=== PATIENT | female | born 1950 | race Caucasian/White ===

== ENCOUNTER 2016-10-19 13:04 | Outpatient (CLI) | payer MEDICARE, MEDICAID | END 2016-10-19 13:05 | disposition home or self-care (01) | DX: G47.30 Sleep apnea, unspecified (principal); G47.8 Other sleep disorders; R06.83 Snoring; G47.10 Hypersomnia, unspecified | CPT/HCPCS: 99203; G0463 ==

== ENCOUNTER 2016-11-13 21:45 | Outpatient (CLI) | payer MEDICARE, MEDICAID | END 2016-11-13 21:46 | disposition home or self-care (01) | LOC: SC 21:45 | PROVIDERS: ATTEND Internal Medicine Pulmonary Disease | DX: G47.33 Obstructive sleep apnea (adult) (pediatric) (principal); G47.61 Periodic limb movement disorder; R09.02 Hypoxemia; Z68.41 Body mass index [BMI] 40.0-44.9, adult | CPT/HCPCS: 95810 ==

== ENCOUNTER 2016-11-20 10:17 | Outpatient (CLI) | payer MEDICARE, MEDICAID | END 2016-11-20 10:18 | disposition home or self-care (01) | DX: Z79.899 Other long term (current) drug therapy (principal); E03.9 Hypothyroidism, unspecified ==

== ENCOUNTER 2016-12-08 14:32 | Outpatient (CLI) | payer MEDICARE, MEDICAID | END 2016-12-08 14:33 | disposition home or self-care (01) | LOC: SC 14:32 | PROVIDERS: ATTEND Nurse Practitioner Family | DX: G47.33 Obstructive sleep apnea (adult) (pediatric) (principal); G47.61 Periodic limb movement disorder | CPT/HCPCS: 99214; G0463; 99212 ==

== ENCOUNTER 2016-12-30 21:57 | Outpatient (CLI) | payer MEDICARE, MEDICAID | END 2016-12-30 21:58 | disposition home or self-care (01) | LOC: SC 21:57 | PROVIDERS: ATTEND Internal Medicine Pulmonary Disease | DX: G47.33 Obstructive sleep apnea (adult) (pediatric) (principal); G47.61 Periodic limb movement disorder; Z68.41 Body mass index [BMI] 40.0-44.9, adult | CPT/HCPCS: 95811 ==

== ENCOUNTER 2017-01-25 11:26 | Outpatient (CLI) | payer MEDICARE, MEDICAID | END 2017-01-25 11:27 | disposition home or self-care (01) | LOC: SC 11:26 | PROVIDERS: ATTEND Internal Medicine Pulmonary Disease | DX: G47.33 Obstructive sleep apnea (adult) (pediatric) (principal); G47.61 Periodic limb movement disorder | CPT/HCPCS: 99213; G0463; 99212 ==

== ENCOUNTER 2017-07-11 21:10 | Emergency (ER) | payer MEDICARE, MEDICAID ==
[2017-07-11 22:10] LABS: BASOPHILS # (AUTO) 0.1 10^3/uL (0.0-0.1); BASOPHILS % (AUTO) 1.4 %; EOSINOPHILS # (AUTO) 0.2 10^3/uL (0.0-0.7); EOSINOPHILS % (AUTO) 2.1 %; HGB - HEMOGLOBIN 14.9 g/dL (12.0-16.0); LYMPHOCYTES # (AUTO) 2.8 10^3/uL (1.5-3.5); MEAN CORPUSCULAR HEMOGLOBIN 28.7 pg (27.0-31.0); MEAN CORPUSCULAR HGB CONC 33.1 g/dL (32.0-36.0); MEAN CORPUSCULAR VOLUME 86.8 fL (81.0-99.0); MEAN PLATELET VOLUME 7.7 fL (7.9-10.8); MONOCYTES # (AUTO) 0.6 10^3/uL (0.0-1.0); MONOCYTES % (AUTO) 6.9 %; NEUTROPHILS # (AUTO) 5.5 10^3/uL (1.5-6.6); NEUTROPHILS % (AUTO) 59.6 %; PLT - PLATELET COUNT 213 10^3/uL (130-450); RED BLOOD COUNT 5.18 10^6/uL (4.20-5.40); RED CELL DISTRIBUTION WIDTH 14.4 % (12.0-15.0); WHITE BLOOD COUNT 9.2 x10^3/uL (4.8-10.8)
[2017-07-11 22:21] LABS: ALBUMIN 4.3 g/dL (3.2-5.5); ALBUMIN/GLOBULIN RATIO 1.5 (1.0-2.2); BILIRUBIN,TOTAL 0.8 mg/dL (0.2-1.0); CALCIUM 9.3 mg/dL (8.5-10.3); CREATININE 1.1 mg/dL (0.4-1.0); TOTAL PROTEIN 7.2 g/dL (6.7-8.2)
[2017-07-11 23:38] LABS: BILIRUBIN,URINE NEGATIVE (NEGATIVE); GLUCOSE, URINE (UA) NEGATIVE (NEGATIVE); KETONES,URINE (UA) NEGATIVE (NEGATIVE); LEUKOCYTE ESTERASE, URINE NEGATIVE (NEGATIVE); NITRITE,URINE NEGATIVE (NEGATIVE); OCCULT BLOOD,URINE NEGATIVE (NEGATIVE); PH,URINE 5.5 PH (5.0-7.5); PROTEIN,URINE NEGATIVE (NEGATIVE); UROBILINOGEN,URINE 0.2 (NORMAL) E.U./dL (NORMAL)
[2017-07-11 23:40] LABS: CLARITY,URINE CLEAR (CLEAR)
--- NOTE | 2017-07-11 23:49 | ED Physician Documentation ---
PD HPI SYNCOPE - Stated complaint Stated Complaint: DIZZY/NAUSEA - Chief complaint Chief Complaint: Neuro - History obtained from History obtained from: Patient - History of Present Illness Timing - onset: How many weeks ago (2) Preceding symptoms: Light headed. No: Chest pain, Dyspnea, Abdominal pain, Nausea / vomiting Contributing factors: None Similar symptoms before: No diagnosis Recently seen: Not recently seen - Additional information Additional information: Patient is a 67 year old female with no significant past medical history who is presenting to the emergency department for near syncope. patient states that over the last two weeks she has had multiple episodes where she feels like she might pass out. patient denies ever passing out though. Patient denies aggravating or alleviating factors. Patient reports that she knew she needed to see a doctor but she stays across the street so she came her first instead. With all the episodes there has never been any chest pain or shortness of breath. Review of Systems Constitutional: denies: Fever, Myalgias Eyes: denies: Decreased vision, Photophobia Ears: denies: Ear pain, Drainage/discharge Nose: denies: Congestion Throat: denies: Sore throat Cardiac: denies: Chest pain / pressure, Palpitations, Calf pain Respiratory: denies: Cough, Wheezing GI: denies: Nausea, Vomiting : reports: Frequency. denies: Dysuria Skin: denies: Rash, Lesions Neurologic: reports: Near syncope. 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 - Present Medications Home Medications: Ambulatory Orders Medication Instructions Recorded Confirmed Levothyroxine [Synthroid] 200 mcg PO QDAC 04/27/13 07/11/17 - Allergies Allergies/Adverse Reactions: Allergies Allergy/AdvReac Type Severity Reaction Status Date / Time No Known Drug Allergies Allergy Verified 07/11/17 21:27 - Social History Does the pt smoke?: No Smoking Status: Never smoker Does the pt drink ETOH?: Yes Does the pt have substance abuse?: No - Immunizations Immunizations are current?: Yes - POLST Patient has POLST: No PD ED PE NORMAL - Vitals Vital signs reviewed: Yes - General General: Alert and oriented X 3, No acute distress - HEENT HEENT: Atraumatic, PERRL - Neck Neck: Supple, no meningeal sign, No JVD, No bruit - Cardiac Cardiac: RRR - Respiratory Respiratory: No respiratory distress, Clear bilaterally - Abdomen Abdomen: Soft, Non tender, Non distended - Derm Derm: Normal color, Warm and dry, No rash - Extremities Extremities: No deformity, Normal ROM s pain, No calf tenderness / cord - Neuro Neuro: Alert and oriented X 3, mud mill tender 2-12 intact, No motor deficit, No sensory deficit, Normal speech Eye Opening: Spontaneous Motor: Obeys Commands Verbal: Oriented GCS Score: 15 - Psych Psych: Normal mood Results - Vitals Vitals: Vital Signs - 24 hr 07/11/17 07/11/17 07/11/17 21:23 22:02 23:14 Temperature 36.8 C Heart Rate 80 74 75 Respiratory 18 17 13 Rate Blood Pressure 146/86 H 149/78 H 160/92 H O2 Saturation 97 94 95 Oxygen O2 Source Room air - EKG (time done) 2152 Rate: Rate (enter#) (78) Rhythm: NSR Bunker: LAD Ischemia: ST depression, T wave inversion Compare to prior EKG: Unchanged from prior EKG - Labs Labs: Laboratory Tests 07/11/17 07/11/17 07/11/17 22:00 22:00 22:00 WBC 9.2 RBC 5.18 Hgb 14.9 Hct 44.9 MCV 86.8 MCH 28.7 MCHC 33.1 RDW 14.4 Plt Count 213 MPV 7.7 L Neut # 5.5 Lymph # 2.8 Wright # 0.6 Eos # 0.2 Baso # 0.1 Absolute Nucleated RBC 0.00 Nucleated RBC % 0.0 Sodium 137 Potassium 3.8 Chloride 101 Carbon Dioxide 25 Anion Gap 11.0 BUN 24 H Creatinine 1.1 H Estimated GFR (MDRD) 50 L Glucose 103 H Calcium 9.3 Magnesium Total Bilirubin 0.8 AST 20 ALT 20 Alkaline Phosphatase 55 Troponin I < 0.04 B-Natriuretic Peptide Total Protein 7.2 Albumin 4.3 Globulin 2.9 Albumin/Globulin Ratio 1.5 Lipase 31 TSH Urine Color Urine Clarity Urine pH Ur Specific [place] Urine Protein Urine Glucose (UA) Urine Ketones Urine Occult Blood Urine Nitrite Urine Bilirubin Urine Urobilinogen Ur Leukocyte Esterase Ur Microscopic Review Urine Culture Comments 07/11/17 07/11/17 07/11/17 22:00 22:00 22:00 WBC RBC Hgb Hct MCV MCH MCHC RDW Plt Count MPV Neut # Lymph # Wright # Eos # Baso # Absolute Nucleated RBC Nucleated RBC % Sodium Potassium Chloride Carbon Dioxide Anion Gap BUN Creatinine Estimated GFR (MDRD) Glucose Calcium Magnesium 2.0 Total Bilirubin AST ALT Alkaline Phosphatase Troponin I B-Natriuretic Peptide 30 Total Protein Albumin Globulin Albumin/Globulin Ratio Lipase TSH 3.82 Urine Color Urine Clarity Urine pH Ur Specific [place] Urine Protein Urine Glucose (UA) Urine Ketones Urine Occult Blood Urine Nitrite Urine Bilirubin Urine Urobilinogen Ur Leukocyte Esterase Ur Microscopic Review Urine Culture Comments 07/11/17 22:20 WBC RBC Hgb Hct MCV MCH MCHC RDW Plt Count MPV Neut # Lymph # Wright # Eos # Baso # Absolute Nucleated RBC Nucleated RBC % Sodium Potassium Chloride Carbon Dioxide Anion Gap BUN Creatinine Estimated GFR (MDRD) Glucose Calcium Magnesium Total Bilirubin AST ALT Alkaline Phosphatase Troponin I B-Natriuretic Peptide Total Protein Albumin Globulin Albumin/Globulin Ratio Lipase TSH Urine Color LT. YELLOW Urine Clarity CLEAR Urine pH 5.5 Ur Specific [place] <=1.005 Urine Protein NEGATIVE Urine Glucose (UA) NEGATIVE Urine Ketones NEGATIVE Urine Occult Blood NEGATIVE Urine Nitrite NEGATIVE Urine Bilirubin NEGATIVE Urine Urobilinogen 0.2 (NORMAL) Ur Leukocyte Esterase NEGATIVE Ur Microscopic Review NOT INDICATED Urine Culture Comments NOT INDICATED PD MEDICAL DECISION MAKING - ED course Complexity details: reviewed old records, reviewed results, re-evaluated patient , considered differential, d/w patient ED course: Patient was seen and examined at bedside. patient was well appearing and in no acute distress. ekg was performed and although abnormal was unchanged from 2014. labs were drawn and urine as collected. Patient had no neurological deficits. Patient's diagnostics were all within normal limits. patient was " low risk" on brice tello syncope rules. Patient was made aware of her findings and given detailed discharge and follow up instructions. Patient required no further work up and was stable for discharge with outpatient follow up. Departure - Departure Disposition: 01 Home, Self Care Clinical Impression: Near syncope Condition: Good Instructions: ED Near Syncope Unkn Follow-Up: Valorie Claros ARNP [Primary Care Provider] - Comments: Your diagnostics today were within normal limits. there is no sign of heart attack, heart failure, anemia or infection. Your ekg has not changed in over 2 years. That being said this is only a snap shot in time and i would recommend following up with your doctor for an echo, stress test and possible carotid dopplers. You may return to the emergency department at any time for new, worsening or uncontrollable symptoms.
[2017-07-12 00:05] VITALS: BP 153/80
== END 2017-07-12 | disposition home or self-care (01) ==
LOC: ED 21:10
DX: R55 Syncope and collapse (principal); R94.31 Abnormal electrocardiogram [ECG] [EKG]; Z96.659 Presence of unspecified artificial knee joint
CPT/HCPCS: 36415; 80053; 81001; 81003; 83690; 83735; 83880; 84443; 84484; 85025; 87086; 93005; 99284

== ENCOUNTER 2017-07-26 08:39 | Outpatient (CLI) | payer MEDICARE, MEDICAID ==
[2017-07-26 12:42] LABS: ALBUMIN 4.3 g/dL (3.2-5.5); ALBUMIN/GLOBULIN RATIO 1.7 (1.0-2.2); BILIRUBIN,TOTAL 0.9 mg/dL (0.2-1.0); CALCIUM 8.8 mg/dL (8.5-10.3); TOTAL PROTEIN 6.9 g/dL (6.7-8.2)
== END 2017-07-26 08:40 | disposition home or self-care (01) ==
LOC: LAB.N 08:39
PROVIDERS: ATTEND Nurse Practitioner Gerontology
DX: N18.3 Chronic kidney disease, stage 3 (moderate) (principal)
CPT/HCPCS: 36415; 80053

== ENCOUNTER 2017-08-24 13:57 | Outpatient (CLI) | payer MEDICARE, MEDICAID ==
--- NOTE | 2017-08-24 16:44 | Mammography Report ---
DIAGNOSTIC BILATERAL MAMMOGRAM: 08/24/2017 CLINICAL INDICATION: Bilateral pain, followup left breast calcifications. TECHNIQUE: Bilateral CC, MLO, true lateral views, left spot magnification views. COMPARISON: 04/13/2016, 09/27/2015, 10/04/2013. FINDINGS: The breasts demonstrate scattered fibroglandular densities bilaterally. The calcifications in the left upper posterior breast have coarsened in the interval, compatible with benign etiology. Other coarse and punctate calcifications are present bilaterally, no suspicious masses, clustered microcalcifications, or regions of architectural distortion are identified. IMPRESSION: BENIGN FINDINGS. RECOMMENDATION: routine annual screening unless otherwise clinically indicated. STANDARD QUALIFYING STATEMENTS: 1. This examination was reviewed with the aid of Computer-Aided Detection (CAD). 2. A negative or benign imaging report should not delay biopsy if clinically suspicious findings are present. Consider surgical consultation if warranted. More than 5% of cancers are not identified by imaging. 3. Dense breasts may obscure an underlying neoplasm. BIRADS CATEGORY 2 benign findings. cc: TERESE Dietz TD: 08/24/2017 16:42 cc: TERESE Dietz
== END 2017-08-24 13:58 | disposition home or self-care (01) ==
LOC: DI 13:57
PROVIDERS: ATTEND Nurse Practitioner Gerontology
DX: N64.4 Mastodynia (principal)
CPT/HCPCS: 77066

== ENCOUNTER 2017-09-12 21:17 | Emergency (ER) | payer MEDICARE, MEDICAID ==
--- NOTE | 2017-09-12 22:24 | XRAY Preliminary Report ---
Exam: XR CHEST 2 VIEW X-RAY IMPRESSION: 1. No acute abnormality seen in the chest. [facility] SITE ID: [id number]
--- NOTE | 2017-09-12 22:25 | XRAY Report ---
EXAM: CHEST RADIOGRAPHY EXAM DATE: 09/12/2017 09:34 PM. CLINICAL HISTORY: Cough and shortness of breath. COMPARISON: 01/07/2016. TECHNIQUE: 2 views. FINDINGS: Lungs/Pleura: No alveolar consolidation or pleural effusion seen. No pneumothorax. Mediastinum: Heart size is normal. Aortic atherosclerosis. Other: None. IMPRESSION: 1. No acute abnormality seen in the chest. [facility] Referring Provider Line: [phone] SITE ID: [id number]
--- NOTE | 2017-09-12 22:39 | ED Physician Documentation ---
PD HPI DYSPNEA - Stated complaint Stated Complaint: COUGH/SOA - Chief complaint Chief Complaint: Resp - History obtained from History obtained from: Patient - History of Present Illness Timing - onset: How many weeks ago (1) Timing - details: Gradual onset, Intermittant Pain level now: 0 Improved by: Rest Worsened by: Exertion, Laying flat, Coughing Associated symptoms: Fever (subjective (did not take temperature)), Cough. No: Hemoptysis, Chest pain / discomfort, Bilateral edema, Unilateral edema Similar symptoms before: Has not had sx before Recently seen: Not recently seen Review of Systems Constitutional: reports: Fever (subjective). 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 - Present Medications Home Medications: Ambulatory Orders Medication Instructions Recorded Confirmed Levothyroxine [Synthroid] 200 mcg PO QDAC 04/27/13 07/11/17 guaiFENesin/CODEINE [Robitussin AC] 5 - 10 ml PO Q6H PRN #100 udc 09/12/17 predniSONE [Prednisone] 40 mg PO DAILY #4 tablet 09/12/17 - Allergies Allergies/Adverse Reactions: Allergies Allergy/AdvReac Type Severity Reaction Status Date / Time No Known Drug Allergies Allergy Verified 09/12/17 21:24 - Social History Does the pt smoke?: No Smoking Status: Never smoker Does the pt drink ETOH?: Yes Does the pt have substance abuse?: No - Immunizations Immunizations are current?: Yes - POLST Patient has POLST: No PD ED PE NORMAL - Vitals Vital signs reviewed: Yes - General General: Alert and oriented X 3, No acute distress, Well developed/nourished - Neck Neck: Supple, no meningeal sign - Cardiac Cardiac: RRR, No murmur - Respiratory Respiratory: No respiratory distress, Clear bilaterally - Abdomen Abdomen: Soft, Non tender - Derm Derm: Normal color, Warm and dry, No rash - Extremities Extremities: No edema Results - Vitals Vitals: Oxygen O2 Source Room air - Rads (name of study) chest xray Radiology: Prelim report reviewed, See rad report PD MEDICAL DECISION MAKING - ED course Complexity details: reviewed results, re-evaluated patient, considered differential, d/w patient Departure - Departure Disposition: 01 Home, Self Care Clinical Impression: Bronchitis, Sinusitis Condition: Good Instructions: ED Upper Resp Infec No Abx Tx, ED Sinusitis No Abx Prescriptions: guaiFENesin/CODEINE [Robitussin AC] 5 - 10 ml PO Q6H PRN #100 udc PRN Reason: Cough predniSONE [Prednisone] 40 mg PO DAILY #4 tablet Discharge Date/Time: 09/12/17 23:32
[2017-09-12] MEDS ORDERED: predniSONE 20 MG TABLET PO STA (23:24)
[2017-09-12] MEDS ORDERED: guaiFENesin/CODEINE 5 ML UDC PO STA (23:24)
[2017-09-12 23:32] VITALS: BP 135/84
== END 2017-09-12 23:32 | disposition home or self-care (01) ==
LOC: ED 21:17
DX: J40 Bronchitis, not specified as acute or chronic (principal); J32.9 Chronic sinusitis, unspecified; K21.9 Gastro-esophageal reflux disease without esophagitis; Z87.442 Personal history of urinary calculi; M19.90 Unspecified osteoarthritis, unspecified site
CPT/HCPCS: 71046; 99283; A9270; J7512

== ENCOUNTER 2017-09-22 09:39 | Outpatient (CLI) | payer MEDICARE, MEDICAID ==
[2017-09-22 10:08] LABS: CHOL/HDL RATIO 3.9 (<4.4); CHOLESTEROL 189 mg/dL; HDL CHOLESTEROL 48 mg/dL; LDL CHOLESTEROL,CALCULATED 119 mg/dL; LDL/HDL RATIO 2.5 (<4.4); VLDL CHOLESTEROL 22 mg/dL
== END 2017-09-22 09:40 | disposition home or self-care (01) ==
LOC: LAB 09:39
PROVIDERS: ATTEND Internal Medicine Cardiovascular Disease
DX: I10 Essential (primary) hypertension (principal)
CPT/HCPCS: 36415; 80061; 83721

== ENCOUNTER 2017-12-27 09:01 | Outpatient (CLI) | payer MEDICARE, MEDICAID ==
[2017-12-27 09:24] LABS: BASOPHILS % (AUTO) 0.7 %; EOSINOPHILS # (AUTO) 0.2 10^3/uL (0.0-0.7); EOSINOPHILS % (AUTO) 2.6 %; HGB - HEMOGLOBIN 14.4 g/dL (12.0-16.0); LYMPHOCYTES # (AUTO) 1.9 10^3/uL (1.5-3.5); LYMPHOCYTES % (AUTO) 29.3 %; MEAN CORPUSCULAR HEMOGLOBIN 28.5 pg (27.0-31.0); MEAN CORPUSCULAR HGB CONC 32.6 g/dL (32.0-36.0); MEAN CORPUSCULAR VOLUME 87.5 fL (81.0-99.0); MEAN PLATELET VOLUME 7.6 fL (7.9-10.8); MONOCYTES # (AUTO) 0.5 10^3/uL (0.0-1.0); MONOCYTES % (AUTO) 7.2 %; NEUTROPHILS # (AUTO) 3.9 10^3/uL (1.5-6.6); NEUTROPHILS % (AUTO) 60.2 %; PLT - PLATELET COUNT 197 10^3/uL (130-450); RED BLOOD COUNT 5.06 10^6/uL (4.20-5.40); RED CELL DISTRIBUTION WIDTH 14.2 % (12.0-15.0); WHITE BLOOD COUNT 6.5 x10^3/uL (4.8-10.8)
[2017-12-27 09:39] LABS: ALBUMIN 3.8 g/dL (3.2-5.5); ALBUMIN/GLOBULIN RATIO 1.2 (1.0-2.2); ALKALINE PHOSPHATASE 50 IU/L (42-121); ALT ALANINE AMINOTRANSFERASE 17 IU/L (10-60); AST ASPARTATE AMINOTRANSFERASE 17 IU/L (10-42); BILIRUBIN,TOTAL 1.1 mg/dL (0.2-1.0); BUN - BLOOD UREA NITROGEN 21 mg/dL (6-20); CALCIUM 8.9 mg/dL (8.5-10.3); CARBON DIOXIDE - CO2 29 mmol/L (21-32); CHLORIDE 105 mmol/L (101-111); CHOLESTEROL 156 mg/dL; GFR - MDRD 55 (>89); GLUCOSE 111 mg/dL (70-100); HDL CHOLESTEROL 52 mg/dL; LDL CHOLESTEROL,CALCULATED 84 mg/dL; LDL/HDL RATIO 1.6 (<4.4); SODIUM 140 mmol/L (135-145); TOTAL PROTEIN 7.1 g/dL (6.7-8.2); VLDL CHOLESTEROL 20 mg/dL
[2017-12-27 09:46] LABS: HB2 TOTAL 16.1 g/dL; HEMOGLOBIN A1C 0.57 g/dL; HEMOGLOBIN A1C % 5.4 % (4.6-6.2)
== END 2017-12-27 09:02 | disposition home or self-care (01) ==
LOC: LAB 09:01
PROVIDERS: ATTEND Nurse Practitioner Gerontology
DX: N18.3 Chronic kidney disease, stage 3 (moderate) (principal); Z79.899 Other long term (current) drug therapy; E03.9 Hypothyroidism, unspecified
CPT/HCPCS: 36415; 80053; 80061; 83036; 83721; 84443; 85025

== ENCOUNTER 2018-04-06 02:30 | Emergency (ER) | payer MEDICARE, MEDICAID ==
--- NOTE | 2018-04-06 02:59 | ED Physician Documentation ---
History of Present Illness - Stated complaint Stated Complaint: DIZZINESS - Chief complaint Chief Complaint: Neuro - History obtained from History obtained from: Patient - History of Present Illness Timing: Last night (approximately 5-6 hours HOSE MENDER) Pain level max: 0 Pain level now: 0 Improved by: lying still Worsened by: movement of head, mostly with turning head to left - Additonal information Additional information: While watching TV at home tonight, patient turned her head and had sudden onset of room spinning (per patient) dizziness. This subsided but then re-occurred while she was lying in bed, again associated with turning her head. The dizziness is distinctly worse with movement of her head, predominantly with turning had two left. Nausea but no vomiting. Review of Systems Constitutional: reports: Reviewed and negative Eyes: reports: Reviewed and negative Ears: reports: Reviewed and negative Nose: reports: Reviewed and negative Cardiac: reports: Reviewed and negative Respiratory: reports: Reviewed and negative GI: reports: Nausea. 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 - Present Medications Home Medications: Ambulatory Orders Medication Instructions Recorded Confirmed Levothyroxine [Synthroid] 200 mcg PO QDAC 04/27/13 07/11/17 Meclizine [Antivert] 25 mg PO Q6H PRN #20 tablet 04/06/18 - Allergies Allergies/Adverse Reactions: Allergies Allergy/AdvReac Type Severity Reaction Status Date / Time No Known Drug Allergies Allergy Verified 04/06/18 03:00 - Social History Does the pt smoke?: No Smoking Status: Never smoker Does the pt drink ETOH?: Yes Does the pt have substance abuse?: No - Immunizations Immunizations are current?: Yes - POLST Patient has POLST: No PD ED PE NORMAL - Vitals Vital signs reviewed: Yes - General General: Alert and oriented X 3, No acute distress, Well developed/nourished - HEENT HEENT: PERRL, EOMI, Ears normal, Moist mucous membranes, Pharynx benign - Neck Neck: Supple, no meningeal sign - Cardiac Cardiac: RRR, No murmur - Respiratory Respiratory: No respiratory distress, Clear bilaterally - Abdomen Abdomen: Soft, Non tender - Neuro Neuro: Alert and oriented X 3, high pressure firer 2-12 intact, No motor deficit, No sensory deficit, Normal speech Eye Opening: Spontaneous Motor: Obeys Commands Verbal: Oriented GCS Score: 15 Results - Vitals Vitals: Vital Signs - 24 hr 04/06/18 04/06/18 04/06/18 02:36 04:00 04:26 Temperature 36.3 C L Heart Rate 75 68 66 Respiratory 18 16 16 Rate Blood Pressure 173/84 H 125/88 H 151/88 H O2 Saturation 96 99 95 Oxygen O2 Source Room air PD MEDICAL DECISION MAKING - ED course Complexity details: re-evaluated patient, considered differential, d/w patient ED course: left-sided sharita maneuver performed and patient reported improvement with this. she had further improvement with 25mg meclizine and was comfortable with d/c Departure - Departure Disposition: 01 Home, Self Care Clinical Impression: Vertigo Condition: Good Instructions: Meclizine, ED Vertigo Unspecified Follow-Up: Tyson Juan PA-C [Primary Care Provider] - Prescriptions: Meclizine [Antivert] 25 mg PO Q6H PRN #20 tablet PRN Reason: Vertigo Comments: If the symptoms return, you can try the Sharita maneuver that was performed in the emergency department tonight. There are many excellent videos on [employer] that demonstrate how to perform the maneuver, such as Sharita maneuver - left side ([place]) or How to perform the sharita maneuver at home for [facility] ([facility]). Discharge Date/Time: 04/06/18 04:50
[2018-04-06] MEDS ORDERED: MECLIZINE 12.5 MG TABLET PO STA (03:35)
[2018-04-06 04:27] VITALS: BP 151/88
== END 2018-04-06 04:50 | disposition home or self-care (01) ==
LOC: ED 02:30
DX: R42 Dizziness and giddiness (principal); R94.31 Abnormal electrocardiogram [ECG] [EKG]; Z96.659 Presence of unspecified artificial knee joint
CPT/HCPCS: 93005; 99283; 99284; A9270

== ENCOUNTER 2018-11-22 15:06 | Outpatient (CLI) | payer MEDICARE, MEDICAID | END 2018-11-22 15:07 | disposition home or self-care (01) | LOC: SC 15:06 | PROVIDERS: ATTEND Internal Medicine Pulmonary Disease | DX: G47.33 Obstructive sleep apnea (adult) (pediatric) (principal) | CPT/HCPCS: 99213; G0463; 99212 ==

== ENCOUNTER 2018-12-12 07:31 | Outpatient (CLI) | payer MEDICARE, MEDICAID ==
--- NOTE | 2018-12-12 10:19 | Ultrasound Report ---
Reason: VERTIGO Procedure Date: 12/12/2018 Accession Number: [id number] / [id number] Procedure: US - Carotid Doppler Complete CPT Code: FULL RESULT: EXAM: BILATERAL CAROTID AND VERTEBRAL ARTERY DUPLEX DOPPLER ULTRASOUND: EXAM DATE: 12/12/2018 08:54 AM CLINICAL HISTORY: Vertigo. COMPARISON: None. TECHNIQUE: Grayscale imaging, color Doppler, and duplex spectral Doppler were used to evaluate the carotid and vertebral arteries bilaterally. Static images were obtained. FINDINGS: There is mild bilateral intimal thickening. No significant plaque is identified in the right or left common or internal carotid arteries. Normal antegrade flow is present in bilateral vertebral arteries. VELOCITIES (cm/sec): Right CCA mid: PSV 83 cm/sec CCA dist: PSV 75 cm/sec ICA prox: PSV 99 cm/sec, EDV 16 cm/sec ICA mid: PSV 58 cm/sec, EDV 16 cm/sec ICA dist: PSV 89 cm/sec, EDV 26 cm/sec ECA: PSV 78 cm/sec Vert: PSV 50 cm/sec ICA/CCA: 1.1 Left CCA mid: PSV 86 cm/sec CCA dist: PSV 92 cm/sec ICA prox: PSV 54 cm/sec, EDV 19 cm/sec ICA mid: PSV 74 cm/sec, EDV 24 cm/sec ICA dist: PSV 54 cm/sec, EDV 19 cm/sec ECA: PSV 76 cm/sec Vert: PSV 44 cm/sec ICA/CCA: 0.80 ICA diameter stenosis: Right: <50% by velocity and <70% by NASCET criteria. Left: <50% by velocity and <70% by NASCET criteria. IMPRESSION: 1. No significant bilateral carotid artery plaquing. 2. In the right carotid artery there are no elevated carotid artery velocities to suggest hemodynamically significant stenosis. 3. In the left carotid artery there are no elevated carotid artery velocities to suggest hemodynamically significant stenosis. 4. Normal antegrade flow is present in bilateral vertebral arteries. 5. Partially visualized is a markedly heterogeneous appearing left thyroid. There is suggestion of a hypoechoic 2.7 x 2.8 cm mass which is not adequately characterized on today's images. Recommendation: Dedicated thyroid ultrasound. General Recommendations: Stenosis =50% ICA - Follow-up ultrasound 6-12 months Stenosis <50% ICA - High Risk Patient with plaque - Follow-up ultrasound 1-2 years Normal Study but High Risk Patient - Follow-up ultrasound 3-5 years Management recommendations and diagnostic criteria are based on current IAC endorsed standards in Carotid Artery Stenosis: Grayscale and Doppler Ultrasound Diagnosis. Validated velocity measurements with angiographic measurements and velocity criteria are extrapolated from diameter data as defined by the Society of Radiologists in Ultrasound Consensus Conference Radiology 2003; 229;340-346. [facility]
== END 2018-12-12 07:32 | disposition home or self-care (01) ==
LOC: DI 07:31
PROVIDERS: ATTEND Physician Assistant Medical
DX: R42 Dizziness and giddiness (principal); E03.9 Hypothyroidism, unspecified
CPT/HCPCS: 36415; 80048; 80061; 83721; 84443; 85025; 93880

== ENCOUNTER 2018-12-12 08:00 | Outpatient (CLI) | payer MEDICARE, MEDICAID ==
[2018-12-12 07:53] LABS: BASOPHILS # (AUTO) 0.1 10^3/uL (0.0-0.1); BASOPHILS % (AUTO) 0.7 %; EOSINOPHILS # (AUTO) 0.3 10^3/uL (0.0-0.7); EOSINOPHILS % (AUTO) 4.6 %; HGB - HEMOGLOBIN 14.3 g/dL (12.0-16.0); LYMPHOCYTES % (AUTO) 27.8 %; MEAN CORPUSCULAR HEMOGLOBIN 27.4 pg (27.0-31.0); MEAN CORPUSCULAR HGB CONC 30.1 g/dL (32.0-36.0); MEAN CORPUSCULAR VOLUME 91.2 fL (81.0-99.0); MEAN PLATELET VOLUME 9.7 fL (7.9-10.8); MONOCYTES # (AUTO) 0.5 10^3/uL (0.0-1.0); MONOCYTES % (AUTO) 6.6 %; NEUTROPHILS # (AUTO) 4.2 10^3/uL (1.5-6.6); NEUTROPHILS % (AUTO) 60.2 %; PLT - PLATELET COUNT 193 10^3/uL (130-450); RED BLOOD COUNT 5.21 10^6/uL (4.20-5.40); RED CELL DISTRIBUTION WIDTH 13.9 % (12.0-15.0)
[2018-12-12 08:10] LABS: BUN - BLOOD UREA NITROGEN 23 mg/dL (6-20); CALCIUM 9.1 mg/dL (8.5-10.3); CARBON DIOXIDE - CO2 26 mmol/L (21-32); CHLORIDE 107 mmol/L (101-111); CHOL/HDL RATIO 3.5 (<4.4); CHOLESTEROL 163 mg/dL; CREATININE 1.1 mg/dL (0.4-1.0); GFR - MDRD 50 (>89); GLUCOSE 155 mg/dL (70-100); HDL CHOLESTEROL 46 mg/dL; LDL CHOLESTEROL,CALCULATED 98 mg/dL; LDL/HDL RATIO 2.1 (<4.4); SODIUM 144 mmol/L (135-145); VLDL CHOLESTEROL 19 mg/dL
== END 2018-12-12 23:59 | disposition home or self-care (01) ==
LOC: LAB 08:00
PROVIDERS: ATTEND Physician Assistant Medical
DX: E03.9 Hypothyroidism, unspecified (principal)
CPT/HCPCS: 36415; 80048; 80061; 83721; 84443; 85025

== ENCOUNTER 2018-12-15 08:06 | Outpatient (CLI) | payer MEDICARE, MEDICAID ==
--- NOTE | 2018-12-15 11:20 | Ultrasound Report ---
Reason: THYROID MASS Procedure Date: 12/15/2018 Accession Number: [id number] / [id number] Procedure: US - Head or Neck Soft Tissue CPT Code: FULL RESULT: EXAM: THYROID ULTRASOUND EXAM DATE: 12/15/2018 08:13 AM. CLINICAL HISTORY: Thyroid mass. COMPARISON: None. TECHNIQUE: Real time sonographic imaging of the thyroid was performed by the ruffler. Multiple sales service representative static images were saved for review. FINDINGS: THYROID GLAND: Not seen, reportedly surgically absent. Left Lobe: Left lobe measures 7.0 x 3.2 x 3.7 cm, volume 43 cc. Echotexture is markedly heterogeneous and multinodular appearing. Left Lobe Nodules: A discrete hypoechoic nodule/mass in the inferior pole of the thyroid measures 2.5 x 2.3 x 2.5 cm and demonstrates vascularity. Isthmus: Residual tissue anterior to the trachea measures approximately 1.4 x 0.7 cm. Isthmic Nodules: None. LYMPH NODES: No adenopathy demonstrated in the central or lateral compartment. OTHER: None. IMPRESSION: Heterogeneous thyroid background parenchyma. Appearance of the 2.5 cm hypoechoic inferior pole lesion warrants tissue sampling by ultrasound-guided FNA. Management recommendations are based on 2015 [place] [employer] Management Guidelines for Adult Patients with Thyroid Nodules and Differentiated Thyroid Cancer. [facility]
== END 2018-12-15 08:07 | disposition home or self-care (01) ==
LOC: DI 08:06
PROVIDERS: ATTEND Physician Assistant Medical
DX: E07.89 Other specified disorders of thyroid (principal)
CPT/HCPCS: 76536

== ENCOUNTER 2019-01-06 13:42 | Outpatient (CLI) | payer MEDICARE, MEDICAID ==
[2019-01-06] MEDS ORDERED: BUPIVACAINE 0.5%-EPI 1:200000 PF 10 ML VIAL ONE (13:58)
[2019-01-06] MEDS ORDERED: BUFFERED LIDOCAINE 10 ML SYRINGE ONE (13:58)
[2019-01-06 15:20] LABS: HB2 TOTAL 14.9 g/dL; HEMOGLOBIN A1C 0.6 g/dL; HEMOGLOBIN A1C % 5.8 % (4.6-6.2)
--- NOTE | 2019-01-06 15:43 | Ultrasound Report ---
Reason: THYROID MASS Procedure Date: 01/06/2019 Accession Number: [id number] / [id number] Procedure: US - FNA Bx w/US Gnd les CPT Code: 72840 FULL RESULT: EXAM: THYROID FINE NEEDLE ASPIRATION EXAM DATE: 01/06/2019 03:02 PM. CLINICAL HISTORY: Thyroid mass. COMPARISON: None. TECHNIQUE: The risks, benefits, and alternatives of the procedure were discussed with the patient. All questions were answered. Written and verbal consent were obtained. A site was marked over the left lower pole thyroid nodule in question under live sonographic evaluation, then subsequently prepped and draped in a sterile manner. Local anesthesia was performed with 1% lidocaine. A total of 4 22 gauge fine-needle aspirates/passes were performed through the nodule in question, then passed to the accounting machine operator for preparation. Estimated blood loss was 0 mL. Sonographic images demonstrate needle placement within the nodule in question. Fluoroscopy Time: None. Number of Images: No fluoroscopy images. FINDINGS IMPRESSION: Left lower pole dominant thyroid nodule FNA. [facility]
== END 2019-01-06 13:43 | disposition home or self-care (01) ==
LOC: DI 13:42
PROVIDERS: ATTEND Physician Assistant Medical
DX: E04.1 Nontoxic single thyroid nodule (principal); R73.9 Hyperglycemia, unspecified
CPT/HCPCS: 10005; 36415; 83036

== ENCOUNTER 2019-03-24 08:00 | Outpatient (CLI) | payer MEDICARE, MEDICAID | END 2019-03-24 23:59 | disposition home or self-care (01) | LOC: LAB.R 08:00 | PROVIDERS: ATTEND Family Medicine | DX: R30.0 Dysuria (principal) | CPT/HCPCS: 87077; 87086; 87181 ==

== ENCOUNTER 2019-07-11 15:46 | Outpatient (CLI) | payer MEDICARE, MEDICAID ==
--- NOTE | 2019-07-12 08:37 | XRAY Report ---
Reason: PAIN IN RT SHLDR Procedure Date: 07/11/2019 Accession Number: [id number] / [id number] Procedure: XR - Shoulder 3 View RT CPT Code: Final Report FULL RESULT: EXAM: RIGHT SHOULDER RADIOGRAPHY 3 VIEWS EXAM DATE: 07/11/2019. CLINICAL HISTORY: Right shoulder pain. COMPARISON: None. TECHNIQUE: AP, Grashey and scapular Y views. FINDINGS: Bones: Moderate subacromial spur, 27 mm in width and up to 7 mm in height. Small osteophytes at the acromioclavicular joint. Irregular sclerotic density of the humeral head. Joints: No subluxation. Glenohumeral joint is normal in width. Moderate narrowing of the acromioclavicular joint. Soft tissues: No calcifications. The included right lung is clear. IMPRESSION: Irregular sclerosis of the humeral head, could be degenerative or related to an old bone infarct. Subacromial spur. Degenerative changes of the acromioclavicular joint. Further evaluation could be obtained with MRI. [facility]
== END 2019-07-11 15:47 | disposition home or self-care (01) ==
LOC: DI 15:46
PROVIDERS: ATTEND Physician Assistant Medical
DX: M19.011 Primary osteoarthritis, right shoulder (principal); M89.8X1 Other specified disorders of bone, shoulder; M75.81 Other shoulder lesions, right shoulder

== ENCOUNTER 2019-12-15 13:36 | Outpatient (CLI) | payer MEDICARE, MEDICAID ==
--- NOTE | 2019-12-15 14:36 | XRAY Report ---
PROCEDURE: Tib/Fib RT INDICATIONS: LEG PX TECHNIQUE: 2 views of the tibia and fibula were acquired. COMPARISON: None FINDINGS: Bones: No fractures or dislocations. No suspicious bony lesions. Small focal region of chronic appe aring periosteal reaction involving the posterior cortex of the mid fibula. Knee arthroplasty has bee n performed. Soft tissues: No suspicious soft tissue calcifications or masses. IMPRESSION: No acute fracture. No osseous lesion. If symptoms and/or clinical suspicion for pathology continue, f urther assessment with repeat plain films, or advanced imaging (e.g., CT, MRI, or bone scan) is recom mended for further assessment. Reviewed by: Giuseppe Drew MD on 12/15/2019 2:35 PM PDT Approved by: Giuseppe Drew MD on 12/15/2019 2:35 PM PDT Station ID: [id number]
--- NOTE | 2019-12-15 14:37 | XRAY Report ---
PROCEDURE: Ankle 3 View RT INDICATIONS: RIGHT LEG PX TECHNIQUE: 3 views of the ankle were acquired. COMPARISON: None FINDINGS: Bones: No fractures or dislocations. Ankle mortise is normally aligned. No suspicious bony lesions . Moderate periarticular osteophyte formation at the tibiotalar joint. Mild periarticular osteophyte formation at the talonavicular and subtalar joints. Calcaneal spurring. Soft tissues: No tibiotalar joint effusion. Achilles tendon appears normal. IMPRESSION: 1. Osteoarthritis. 2. No acute fracture. No osseous lesion. If symptoms and/or clinical suspicion for pathology continue , further assessment with repeat plain films, or advanced imaging (e.g., CT, MRI, or bone scan) is re commended for further assessment. Reviewed by: Giuseppe rDew MD on 12/15/2019 2:35 PM PDT Approved by: Giuseppe Drew MD on 12/15/2019 2:35 PM PDT Station ID: [id number]
== END 2019-12-15 13:37 | disposition home or self-care (01) ==
LOC: DI.S 13:36
PROVIDERS: ATTEND Physician Assistant Medical
DX: M19.071 Primary osteoarthritis, right ankle and foot (principal)

== ENCOUNTER 2019-12-29 08:00 | Outpatient (CLI) | payer MEDICARE, MEDICAID | END 2019-12-29 23:59 | disposition home or self-care (01) | LOC: LAB 08:00 | PROVIDERS: ATTEND Family Medicine | DX: J06.9 Acute upper respiratory infection, unspecified (principal); Z20.828 Contact with and (suspected) exposure to other viral communicable diseases ==

== ENCOUNTER 2020-01-04 08:14 | Outpatient (CLI) | payer MEDICARE, MEDICAID ==
[2020-01-04 08:27] LABS: BASOPHILS # (AUTO) 0.1 10^3/uL (0.0-0.1); BASOPHILS % (AUTO) 0.7 %; EOSINOPHILS # (AUTO) 0.2 10^3/uL (0.0-0.7); EOSINOPHILS % (AUTO) 2.9 %; HGB - HEMOGLOBIN 14.6 g/dL (12.0-16.0); LYMPHOCYTES # (AUTO) 2.4 10^3/uL (1.5-3.5); LYMPHOCYTES % (AUTO) 31.6 %; MEAN CORPUSCULAR HEMOGLOBIN 28.7 pg (27.0-31.0); MEAN CORPUSCULAR HGB CONC 31.5 g/dL (32.0-36.0); MEAN PLATELET VOLUME 9.6 fL (7.9-10.8); MONOCYTES # (AUTO) 0.5 10^3/uL (0.0-1.0); MONOCYTES % (AUTO) 7.2 %; NEUTROPHILS # (AUTO) 4.3 10^3/uL (1.5-6.6); NEUTROPHILS % (AUTO) 57.2 %; PLT - PLATELET COUNT 192 10^3/uL (130-450); RED BLOOD COUNT 5.09 10^6/uL (4.20-5.40); RED CELL DISTRIBUTION WIDTH 13.9 % (12.0-15.0); WHITE BLOOD COUNT 7.5 x10^3/uL (4.8-10.8)
[2020-01-04 09:03] LABS: ALBUMIN 3.9 g/dL (3.2-5.5); ALBUMIN/GLOBULIN RATIO 1.3 (1.0-2.2); ALKALINE PHOSPHATASE 54 IU/L (42-121); ALT ALANINE AMINOTRANSFERASE 18 IU/L (10-60); AST ASPARTATE AMINOTRANSFERASE 16 IU/L (10-42); BILIRUBIN,TOTAL 0.8 mg/dL (0.2-1.0); BUN - BLOOD UREA NITROGEN 28 mg/dL (6-20); CALCIUM 8.8 mg/dL (8.5-10.3); CARBON DIOXIDE - CO2 27 mmol/L (21-32); CHLORIDE 103 mmol/L (101-111); CHOL/HDL RATIO 3.5 (<4.4); CHOLESTEROL 179 mg/dL; GLUCOSE 119 mg/dL (70-100); HDL CHOLESTEROL 51 mg/dL; LDL CHOLESTEROL,CALCULATED 112 mg/dL; LDL/HDL RATIO 2.2 (<4.4); SODIUM 140 mmol/L (135-145); TOTAL PROTEIN 6.9 g/dL (6.7-8.2); VLDL CHOLESTEROL 16 mg/dL
[2020-01-04 09:20] LABS: HB2 TOTAL 15.2 g/dL; HEMOGLOBIN A1C 0.6 g/dL; HEMOGLOBIN A1C % 5.8 % (4.6-6.2)
== END 2020-01-04 08:15 | disposition home or self-care (01) ==
LOC: LAB 08:14
PROVIDERS: ATTEND Nurse Practitioner Family
DX: N28.9 Disorder of kidney and ureter, unspecified (principal); R73.9 Hyperglycemia, unspecified; E03.9 Hypothyroidism, unspecified
CPT/HCPCS: 36415; 80053; 80061; 83036; 83721; 84443; 85025

== ENCOUNTER 2020-01-09 13:03 | Outpatient (CLI) | payer MEDICARE, MEDICAID ==
--- NOTE | 2020-01-09 15:07 | SLEEP CARE CONSULTATION ---
Information from patient questionnaire entered by Aileen Cedillo. I have reviewed and concur with the information entered by Aileen Cedillo. This document represents the service I personally performed and the decisions made by me, Kiran Rothman MD, [facility]. History of Present Illness Service Date and Time: 01/09/2020 1303 Previous diagnosis: Severe, Obstructive Sleep Apnea-Hypopnea Syndrome AHI: 58.5 (in 2017) Reason for follow up: annual (last seen 2019) Equipment type: CPAP Equipment obtained from: [facility] Mask style: Nasal Prior sleep studies: Yes Year and Where: 2017 - [facility] Sleep HPI additional information: HPI: Ms. Damon was returns today to follow up on the nasal CPAP therapy. She was diagnosed to have severe obstructive sleep apnea-hypopnea syndrome. The patient wears with a Respironics Wisp nasal mask. She reports using the device nightly and all through the night. The compliance data show usage in 180 out of the past 180 nights, averaging 6.8 hours a night. The > 4 hour compliance rate for the past 180 days is 100%. She complained of no particular problem with the device such as soreness on the face, dry nose, epistaxis, nasal congestion or headache. She thinks that the pressure is comfortable. On the CPAP therapy she notices improvement in her sleep quality, and that she wakes up feeling fresher in the morning and more awake/alert during the day. The [place] Sleepiness Scale score 7. The average residual AHI is 1.5 : and average time in large leak per day is 42 seconds. The 90th percentile pressure is 10 cmH2O. CPAP Compliance Data - Data Reviewed with Patient Average duration of nightly device use: 6.8 Compliance rate %: 97.8 (180 days) Current pressure setting (cmH2O): 6-10 Humidity settin Heated hose settin Average residual AHI: 1.5 Average large leak: 42 sec Subjective Patient concerns: reports: condensation in mask/hose Initial [place] Sleepiness Scale score: 10 (in 2017) Current [place] Sleepiness Scale score: 7 Allergies and Home Medications Drug allergies reviewed: Yes Home medication list reviewed: Yes Physical Exam Vital signs obtained and entered by: Detailed physical exam was not performed to comply with the COVID-19 precau Height: 5 ft 9 in Impression and Plan IMPRESSION: 1. Obstructive Sleep Apnea-Hypopnea Syndrome, severe (58.5), with the patient continuing to do well on nasal CPAP therapy. She has excellent compliance and significant clinical improvement. The current pressure appears effective and comfortable. Her mask fits well. Overall, she is very satisfied with treatment and plans to continue with it long-term. No adjustment is necessary today. PLAN: 1. Continue with autoCPAP set at 6 - 10 cmH2O. 2. Try to lose weight 3. Try other masks, e.g. Respironics DreamWear nasal cushion mask and ResMed N30i mask. 4. Return in one year for follow up or earlier if there is any problem with the treatment. Visit Type: In Office Time Spent with Patient (minutes): 15 Provider Statement: I spent 100% of the Face to Face Visit with the patient with greater than 50% spent counseling the patient and coordination of care.
== END 2020-01-09 13:04 | disposition home or self-care (01) ==
LOC: SC 13:03
PROVIDERS: ATTEND Internal Medicine Pulmonary Disease
DX: G47.33 Obstructive sleep apnea (adult) (pediatric) (principal)
CPT/HCPCS: 99213; G0463; 99212

== ENCOUNTER 2020-12-18 10:02 | Outpatient (CLI) | payer MEDICARE, MEDICAID ==
[2020-12-18 10:20] LABS: BASOPHILS % (AUTO) 0.6 %; EOSINOPHILS # (AUTO) 0.2 10^3/uL (0.0-0.7); EOSINOPHILS % (AUTO) 2.6 %; HCT - HEMATOCRIT 45.1 % (37.0-47.0); HGB - HEMOGLOBIN 14.2 g/dL (12.0-16.0); LYMPHOCYTES # (AUTO) 2.2 10^3/uL (1.5-3.5); MEAN CORPUSCULAR HEMOGLOBIN 28.2 pg (27.0-31.0); MEAN CORPUSCULAR HGB CONC 31.5 g/dL (32.0-36.0); MEAN CORPUSCULAR VOLUME 89.7 fL (81.0-99.0); MEAN PLATELET VOLUME 9.8 fL (7.9-10.8); MONOCYTES # (AUTO) 0.5 10^3/uL (0.0-1.0); MONOCYTES % (AUTO) 7.1 %; NEUTROPHILS % (AUTO) 57.6 %; PLT - PLATELET COUNT 179 10^3/uL (130-450); RED BLOOD COUNT 5.03 10^6/uL (4.20-5.40); RED CELL DISTRIBUTION WIDTH 14.2 % (12.0-15.0); WHITE BLOOD COUNT 6.9 x10^3/uL (4.8-10.8)
[2020-12-18 10:39] LABS: ALBUMIN 4.1 g/dL (3.2-5.5); ALBUMIN/GLOBULIN RATIO 1.6 (1.0-2.2); ALKALINE PHOSPHATASE 56 IU/L (42-121); ALT ALANINE AMINOTRANSFERASE 21 IU/L (10-60); AST ASPARTATE AMINOTRANSFERASE 17 IU/L (10-42); BUN - BLOOD UREA NITROGEN 25 mg/dL (6-20); CALCIUM 8.8 mg/dL (8.5-10.3); CARBON DIOXIDE - CO2 28 mmol/L (21-32); CHLORIDE 104 mmol/L (101-111); CHOL/HDL RATIO 4.2 (<4.4); CHOLESTEROL 186 mg/dL; GFR - MDRD 55 (>89); GLUCOSE 107 mg/dL (70-100); HDL CHOLESTEROL 44 mg/dL; LDL CHOLESTEROL,CALCULATED 122 mg/dL; LDL/HDL RATIO 2.8 (<4.4); POTASSIUM 4.2 mmol/L (3.5-5.0); SODIUM 140 mmol/L (135-145); TOTAL PROTEIN 6.7 g/dL (6.7-8.2); TRIGLYCERIDES 102 mg/dL; VLDL CHOLESTEROL 20 mg/dL
[2020-12-18 10:50] LABS: THYROID STIMULATING HORMONE 0.33 uIU/mL (0.34-5.60)
[2020-12-18 11:26] LABS: FREE T4 (FREE THYROXINE) 1.36 ng/dL (0.58-1.64)
[2020-12-18 11:42] LABS: ESTIMATED AVERAGE GLUCOSE 117 mg/dL (70-100); HEMOGLOBIN A1c% 5.7 % (4.27-6.07)
== END 2020-12-18 10:03 | disposition home or self-care (01) ==
LOC: LAB 10:02
PROVIDERS: ATTEND Family Medicine
DX: R73.9 Hyperglycemia, unspecified (principal); E07.9 Disorder of thyroid, unspecified; E03.9 Hypothyroidism, unspecified; N18.30 Chronic kidney disease, stage 3 unspecified
CPT/HCPCS: 36415; 80053; 80061; 83036; 83721; 84439; 84443; 85025

== ENCOUNTER 2020-12-30 10:02 | Outpatient (CLI) | payer MEDICARE, MEDICAID ==
--- NOTE | 2021-01-06 09:25 | SLEEP CARE CONSULTATION ---
Information from patient questionnaire entered by Aileen Cedillo. I have reviewed and concur with the information entered by Aileen Cedillo. This document represents the service I personally performed and the decisions made by me, Kiran Rothman MD, [facility]. History of Present Illness Service Date and Time: 12/30/2020 1002 Previous diagnosis: Severe, Obstructive Sleep Apnea-Hypopnea Syndrome AHI: 58.5 (in 2017) Reason for follow up: annual (last seen 12/2019) Equipment type: CPAP Equipment obtained from: [facility] Mask style: Nasal Prior sleep studies: Yes Year and Where: 2017 - [facility] Sleep HPI additional information: HPI: Ms. Damon was returns today to follow up on the nasal CPAP therapy. She was diagnosed to have severe obstructive sleep apnea-hypopnea syndrome. The patient wears with a Respironics Wisp nasal mask. She continues to use the device nightly and all through the night. The compliance data show usage in 180 out of the past 180 nights, averaging 6.9 hours a night. The > 4 hour compliance rate for the past 180 days is 99.4%. She complained of no particular problem with the device such as soreness on the face, dry nose, epistaxis, nasal congestion or headache. She thinks that the pressure is comfortable. On the CPAP therapy she notices improvement in her sleep quality, and that she wakes up feeling fresher in the morning and more awake/alert during the day. The [place] Sleepiness Scale score 7. The average residual AHI is 1.4: and average time in large leak per day is 1 minute. The 90th percentile pressure is 10 cmH2O. CPAP Compliance Data - Data Reviewed with Patient Average duration of nightly device use: 6 hr 54 min Compliance rate %: 99.4 (180 days) Current pressure setting (cmH2O): 6-10 Humidity settin Heated hose settin Average residual AHI: 1.4 Average large leak: 1 min 15 sec Subjective Current pressure setting perceived as: comfortable Initial [place] Sleepiness Scale score: 10 (in 2017) Current [place] Sleepiness Scale score: 3 Allergies and Home Medications Drug allergies reviewed: Yes Home medication list reviewed: Yes Review of Systems Review of systems same as previous: Yes Physical Exam Height: 5 ft 9 in Impression and Plan IMPRESSION: 1. Obstructive Sleep Apnea-Hypopnea Syndrome, severe (58.5), with the patient continuing to do well on nasal CPAP therapy. She has excellent compliance and significant clinical improvement. The current pressure appears effective and comfortable. Her mask fits well. Overall, she is very satisfied with treatment and plans to continue with it long-term. No adjustment is necessary today. In regards to the recall on all ReserveOut DreamStation devices, we discussed the risks and benefits of stopping versus continuing to use the device. In severe cases, it appears the benefits outweigh the risks and it is reasonable to continue until the replace part or machine becomes available. Symptoms that could be related to the recalled sound abatement foam piece are headache, nausea, chest tightness, and upper airway irritation. The patients should also look for debris in the air outlet, water reservoir, and hose. If found, the device should not be used. In [id number] cases, the patients should refrain from using the device. The patient should register the device on [employer]-update. PLAN: 1. Continue with autoCPAP set at 6 - 10 cmH2O. 2. Try to lose weight 3. [place] the device to get replacement machine. 4. Return in one year for follow up or earlier if there is any problem with the treatment. Visit Type: In Office Time Spent with Patient (minutes): 15 Provider Statement: I spent 100% of the Face to Face Visit with the patient with greater than 50% spent counseling the patient and coordination of care.
== END 2020-12-30 10:03 | disposition home or self-care (01) ==
LOC: SC 10:02
PROVIDERS: ATTEND Internal Medicine Pulmonary Disease
DX: G47.33 Obstructive sleep apnea (adult) (pediatric) (principal)
CPT/HCPCS: 99212; G0463

== ENCOUNTER 2021-11-09 14:21 | Outpatient (CLI) | payer MEDICARE, MEDICAID ==
--- NOTE | 2021-11-09 15:02 | XRAY Report ---
PROCEDURE: Foot 3 View LT INDICATIONS: LEFT FOOT PAIN TECHNIQUE: 3 views of the foot were acquired. COMPARISON: None FINDINGS: Bones: No fractures or dislocations. No suspicious bony lesions. Spurs posterior and plantar calcan eal spurs noted. Soft tissues: No tibiotalar joint effusion. Achilles tendon appears normal. Dorsal soft tissue swe lling IMPRESSION: Calcaneal spur and soft tissue swelling without fracture or foreign body Reviewed by: Fady Pryor MD on 11/09/2021 2:01 PM JOSE ANTONIO Approved by: Fady Pryor MD on 11/09/2021 2:01 PM JOSE ANTONIO Station ID: [id number]
== END 2021-11-09 14:22 | disposition home or self-care (01) ==
LOC: DI 14:21
PROVIDERS: ATTEND Family Medicine
DX: M77.32 Calcaneal spur, left foot (principal); M79.89 Other specified soft tissue disorders

== ENCOUNTER 2021-12-18 08:49 | Outpatient (CLI) | payer MEDICARE, MEDICAID ==
[2021-12-18 09:00] LABS: BASOPHILS % (AUTO) 0.6 %; EOSINOPHILS # (AUTO) 0.2 10^3/uL (0.0-0.7); EOSINOPHILS % (AUTO) 2.4 %; HCT - HEMATOCRIT 47.4 % (37.0-47.0); LYMPHOCYTES # (AUTO) 2.3 10^3/uL (1.5-3.5); LYMPHOCYTES % (AUTO) 31.5 %; MEAN CORPUSCULAR HEMOGLOBIN 27.9 pg (27.0-31.0); MEAN CORPUSCULAR HGB CONC 31.6 g/dL (32.0-36.0); MEAN CORPUSCULAR VOLUME 88.3 fL (81.0-99.0); MEAN PLATELET VOLUME 9.6 fL (7.9-10.8); MONOCYTES # (AUTO) 0.4 10^3/uL (0.0-1.0); MONOCYTES % (AUTO) 6.1 %; NEUTROPHILS # (AUTO) 4.3 10^3/uL (1.5-6.6); NEUTROPHILS % (AUTO) 59.3 %; PLT - PLATELET COUNT 201 10^3/uL (130-450); RED BLOOD COUNT 5.37 10^6/uL (4.20-5.40); RED CELL DISTRIBUTION WIDTH 14.1 % (12.0-15.0); WHITE BLOOD COUNT 7.2 x10^3/uL (4.8-10.8)
[2021-12-18 09:19] LABS: ALBUMIN/GLOBULIN RATIO 1.4 (1.0-2.2); ALKALINE PHOSPHATASE 59 IU/L (42-121); ALT ALANINE AMINOTRANSFERASE 20 IU/L (10-60); AST ASPARTATE AMINOTRANSFERASE 16 IU/L (10-42); BILIRUBIN,TOTAL 0.7 mg/dL (0.2-1.0); BUN - BLOOD UREA NITROGEN 21 mg/dL (6-20); CALCIUM 9.2 mg/dL (8.5-10.3); CARBON DIOXIDE - CO2 30 mmol/L (21-32); CHLORIDE 102 mmol/L (101-111); CHOL/HDL RATIO 3.6 (<4.4); CHOLESTEROL 189 mg/dL; GFR - MDRD 55 (>89); GLUCOSE 107 mg/dL (70-100); HDL CHOLESTEROL 53 mg/dL; LDL CHOLESTEROL,CALCULATED 112 mg/dL; LDL/HDL RATIO 2.1 (<4.4); POTASSIUM 4.4 mmol/L (3.5-5.0); SODIUM 142 mmol/L (135-145); TOTAL PROTEIN 6.9 g/dL (6.7-8.2); TRIGLYCERIDES 122 mg/dL; VLDL CHOLESTEROL 24 mg/dL
[2021-12-18 09:30] LABS: THYROID STIMULATING HORMONE 1.17 uIU/mL (0.34-5.60)
[2021-12-18 10:21] LABS: ESTIMATED AVERAGE GLUCOSE 120 mg/dL (70-100); HEMOGLOBIN A1c% 5.8 % (4.27-6.07)
== END 2021-12-18 08:50 | disposition home or self-care (01) ==
LOC: LAB 08:49
PROVIDERS: ATTEND Physician Assistant
DX: N28.9 Disorder of kidney and ureter, unspecified (principal); Z13.220 Encounter for screening for lipoid disorders; R73.03 Prediabetes; E89.0 Postprocedural hypothyroidism; Z51.81 Encounter for therapeutic drug level monitoring
CPT/HCPCS: 36415; 80053; 80061; 83036; 83721; 84443; 85025

== ENCOUNTER 2021-12-29 09:50 | Outpatient (CLI) | payer MEDICARE, MEDICAID ==
[2021-12-29 10:14] VITALS: BP 152/88
--- NOTE | 2021-12-29 10:14 | SLEEP CARE CONSULTATION ---
Information from patient questionnaire entered by Debora Laguna. I have reviewed and concur with the information entered by Debora Laguna. This document represents the service I personally performed and the decisions made by me, Kiran Rothman MD, [facility]. History of Present Illness Service Date and Time: 12/29/2021 0950 Previous diagnosis: Severe, Obstructive Sleep Apnea-Hypopnea Syndrome AHI: 58.5 (in 2016) Reason for follow up: first compliance, annual (ANNUAL, LAST SEEN 12/2020) Equipment type: CPAP Equipment obtained from: [facility] Mask style: Nasal Prior sleep studies: Yes Year and Where: 2016 - [facility] Sleep HPI additional information: Ms. Damon was returns today to follow up on the nasal CPAP therapy. She was diagnosed to have severe obstructive sleep apnea-hypopnea syndrome. The patient wears with a Respironics Wisp nasal mask. She has a Respironics DreamStation autoCPAP that she stopped using last March when it broke. She has registered it with [employer] but has not gotten a replacement yet. Presently, she is using a [employer] Respironics System One Series autoCPAP. The compliance data show usage in 30 out of the past 30 nights, averaging 6.8 hours a night. The > 4 hour compliance rate for the past 30 days is 100%. Average time in large leak per day is 0 minutes. She wears a nasal mask. The pressure on the borrowed machine is set at 6 10 cmH2O, which is the same as on her broken Respironics DreamStation. Sleep Study - Results Prior sleep studies: Yes Year and Where: 2016 - [facility] Sleep Subjective Initial [place] Sleepiness Scale score: 10 (in 2016) Current [place] Sleepiness Scale score: 12 (December 2021) Allergies and Home Medications Drug allergies reviewed: Yes Home medication list reviewed: Yes Allergy and home medication list: Allergies No Known Drug Allergies Allergy (Verified 04/06/18 03:00) Review of Systems Review of systems same as previous: Yes Physical Exam Vital signs obtained and entered by: MARIE, MARKETING RECRUITER Blood Pressure: 152/88 (right arm) Cuff size: long Heart Rate: 71 O2 Saturation: 96 Height: 5 ft 9 in Weight: 300 lb Body Mass Index: 44.3 BMI Classification: Morbidly Obese Impression and Plan IMPRESSION: 1. Obstructive Sleep Apnea-Hypopnea Syndrome, severe (58.5), with the patient continuing to do well on nasal CPAP therapy. She has excellent compliance and significant clinical improvement. The current pressure appears effective and comfortable. Her mask fits well. Overall, she is very satisfied with treatment and plans to continue with it long-term. Because the Respironics DreamStation autoCPAP is now older than the useful life of 5 years and is broken, I will order the patient a new one and make it an a ResMed AirSense 11 set at 6 - 10 cmH2O. PLAN: 1. Prescription made for an autoCPAP, heated humidifier, and related supplies. 2. The patient would like to try an [id number] nasal cushion. 3. Return for follow up after one month of using the CPAP. Counseling Topics: Weight control Prescriptions: Auto CPAP Follow up with Sleep Care in: 3 months Visit Type: In Office Time Spent with Patient (minutes): 20 Provider Statement: I spent 100% of the Face to Face Visit with the patient with greater than 50% spent counseling the patient and coordination of care.
== END 2021-12-29 09:51 | disposition home or self-care (01) ==
LOC: SC 09:50
PROVIDERS: ATTEND Internal Medicine Pulmonary Disease
DX: G47.33 Obstructive sleep apnea (adult) (pediatric) (principal); E66.01 Morbid (severe) obesity due to excess calories; Z68.41 Body mass index [BMI] 40.0-44.9, adult
CPT/HCPCS: 99213; G0463; 99212

== ENCOUNTER 2022-03-23 10:33 | Outpatient (CLI) | payer MEDICARE, MEDICAID ==
[2022-03-23 11:10] VITALS: BP 146/86
--- NOTE | 2022-03-23 11:10 | SLEEP CARE CONSULTATION ---
Information from patient questionnaire entered by Debora Laguna. I have reviewed and concur with the information entered by Debora Laguna. This document represents the service I personally performed and the decisions made by me, Kiran Rothman MD, [facility]. History of Present Illness Service Date and Time: 03/23/2022 1033 Previous diagnosis: Severe, Obstructive Sleep Apnea-Hypopnea Syndrome AHI: 58.5 (in 2017) Reason for follow up: first compliance after device update (SET UP 01/27/22) Equipment type: CPAP (RESMED) Equipment obtained from: [facility] Mask style: Nasal Prior [facility]: Yes [facility] additional information: Ms. Damon returned today for follow up of nasal CPAP therapy. She was diagnosed to have mild obstructive sleep apnea-hypopnea syndrome (AHI was 13.6). The patient recently acquired a new ResMed AirSense 11 from [employer]. She also just got a replacement [employer] RespirPPTVs DreamStation 2. She reports using the ResMed AirSense 11 nightly and all through the night. The compliance report shows usage in 30 nights out of the past 30 nights, averaging 6.6 hours a night. She complained of no particular problem with the device such as soreness on the face, dry nose, epistaxis, nasal congestion or headache. She thinks that the pressure of 6 - 10 cmH2O is too strong for the nasal pillows she was incorrectly sent. On the CPAP therapy she notices improvement in her sleep quality, and that she wakes up feeling fresher in the morning and more awake/alert during the day. The [place] Sleepiness Scale score 9. The average residual AHI is 1.6: and air leak, 0 L/min. The 90th percentile pressure is 10 cmH2O. Sleep Study - Results Prior sleep studies: Yes Year and Where: [address] - [facility] Sleep CPAP Compliance Data - Data Reviewed with Patient Average duration of nightly device use: 6 hours, 27 minutes Compliance rate %: 100 (02/18/22 to 03/19/22) Current pressure setting (cmH2O): 6-10 Average residual AHI: 1.6 Subjective Initial [place] Sleepiness Scale score: 10 (in 2017) Current [place] Sleepiness Scale score: 9 (03/23/22) Allergies and Home Medications Drug allergies reviewed: Yes Home medication list reviewed: Yes Allergy and home medication list: Allergies No Known Drug Allergies Allergy (Verified 04/06/18 03:00) Review of Systems Review of systems same as previous: Yes Physical Exam Vital signs obtained and entered by: RACQUEL SALAZAR Blood Pressure: 146/86 (LEFT WRIST ) Cuff size: wrist Heart Rate: 78 O2 Saturation: 96 Height: 5 ft 9 in Weight: 304 lb Body Mass Index: 44.9 BMI Classification: Morbidly Obese Impression and Plan IMPRESSION: 1. Obstructive Sleep Apnea-Hypopnea Syndrome, mild, with the patient doing well on nasal CPAP therapy. She has excellent compliance and significant clinical improvement. The current pressure appears effective but not too comfortable. Overall, she is very satisfied with treatment and plans to continue with it long-term. I will lower the ResMed AirSense 11 to 5 - 9 cmH2O. PLAN: 1. AutoCPAP lowered to 5 - 9 cmH2O manually. 2. I set up the new [employer] Respironics DreamStation 2 for her. It is set at 6 - 10 cmH2O. 3. Return in one year for follow up or earlier if there is any problem with the treatment. Follow up with Sleep Care in: 1 year Visit Type: In Office Time Spent with Patient (minutes): 20 Provider Statement: I spent 100% of the Face to Face Visit with the patient with greater than 50% spent counseling the patient and coordination of care.
== END 2022-03-23 10:34 | disposition home or self-care (01) ==
LOC: SC 10:33
PROVIDERS: ATTEND Internal Medicine Pulmonary Disease
DX: G47.33 Obstructive sleep apnea (adult) (pediatric) (principal)
CPT/HCPCS: 99213; G0463; 99212

== ENCOUNTER 2022-12-21 08:01 | Outpatient (CLI) | payer MEDICARE, MEDICAID ==
[2022-12-21 08:20] LABS: BASOPHILS % (AUTO) 0.5 %; EOSINOPHILS # (AUTO) 0.2 10^3/uL (0.0-0.7); EOSINOPHILS % (AUTO) 2.1 %; HCT - HEMATOCRIT 47.3 % (37.0-47.0); HGB - HEMOGLOBIN 14.9 g/dL (12.0-16.0); LYMPHOCYTES # (AUTO) 2.1 10^3/uL (1.5-3.5); LYMPHOCYTES % (AUTO) 26.5 %; MEAN CORPUSCULAR HEMOGLOBIN 28.4 pg (27.0-31.0); MEAN CORPUSCULAR HGB CONC 31.5 g/dL (32.0-36.0); MEAN CORPUSCULAR VOLUME 90.1 fL (81.0-99.0); MEAN PLATELET VOLUME 9.7 fL (7.9-10.8); MONOCYTES # (AUTO) 0.6 10^3/uL (0.0-1.0); MONOCYTES % (AUTO) 7.9 %; NEUTROPHILS # (AUTO) 4.9 10^3/uL (1.5-6.6); NEUTROPHILS % (AUTO) 62.9 %; PLT - PLATELET COUNT 188 10^3/uL (130-450); RED BLOOD COUNT 5.25 10^6/uL (4.20-5.40); RED CELL DISTRIBUTION WIDTH 14.3 % (12.0-15.0); WHITE BLOOD COUNT 7.7 x10^3/uL (4.8-10.8)
[2022-12-21 08:36] LABS: ALBUMIN 3.6 g/dL (3.2-5.5); ALBUMIN/GLOBULIN RATIO 1.1 (1.0-2.2); ALKALINE PHOSPHATASE 53 IU/L (42-121); ALT ALANINE AMINOTRANSFERASE 18 IU/L (10-60); AST ASPARTATE AMINOTRANSFERASE 16 IU/L (10-42); BILIRUBIN,TOTAL 0.9 mg/dL (0.2-1.0); BUN - BLOOD UREA NITROGEN 22 mg/dL (6-20); CALCIUM 8.6 mg/dL (8.5-10.3); CARBON DIOXIDE - CO2 30 mmol/L (21-32); CHLORIDE 105 mmol/L (101-111); CHOL/HDL RATIO 3.5 (<4.4); CHOLESTEROL 187 mg/dL; CREATININE 1.1 mg/dL (0.4-1.0); GFR - MDRD 49 (>89); GLUCOSE 119 mg/dL (70-100); HDL CHOLESTEROL 54 mg/dL; LDL CHOLESTEROL,CALCULATED 114 mg/dL; LDL/HDL RATIO 2.1 (<4.4); POTASSIUM 4.3 mmol/L (3.5-5.0); SODIUM 142 mmol/L (135-145); TOTAL PROTEIN 6.8 g/dL (6.7-8.2); TRIGLYCERIDES 95 mg/dL; VLDL CHOLESTEROL 19 mg/dL
[2022-12-21 08:45] LABS: THYROID STIMULATING HORMONE 1.1 uIU/mL (0.34-5.60)
[2022-12-21 11:43] LABS: ESTIMATED AVERAGE GLUCOSE 120 mg/dL (70-100); HEMOGLOBIN A1c% 5.8 % (4.27-6.07)
== END 2022-12-21 08:02 | disposition home or self-care (01) ==
LOC: LAB 08:01
PROVIDERS: ATTEND Physician Assistant
DX: Z00.00 Encounter for general adult medical examination without abnormal findings (principal); Z13.220 Encounter for screening for lipoid disorders; E89.0 Postprocedural hypothyroidism; R73.01 Impaired fasting glucose
CPT/HCPCS: 36415; 80053; 80061; 83036; 83721; 84443; 85025

== ENCOUNTER 2023-04-05 09:44 | Outpatient (CLI) | payer MEDICARE, MEDICAID ==
--- NOTE | 2023-04-05 10:14 | SLEEP CARE CONSULTATION ---
Information from patient questionnaire entered by Agustin Morton. I have reviewed and concur with the information entered by Agustin Morton. This document represents the service I personally performed and the decisions made by me, Kiran Rothman MD, [facility]. History of Present Illness Service Date and Time: 04/05/2023 0944 Previous diagnosis: Severe, Obstructive Sleep Apnea-Hypopnea Syndrome AHI: 58.5 (in 2017) Reason for follow up: annual (LAST SEEN 03/2022) Equipment type: CPAP (RESMED) Equipment obtained from: [facility] Mask style: Nasal Prior sleep studies: Yes Year and Where: 2016 - [facility] Sleep HPI additional information: Ms. Damon returns today to follow up on the nasal CPAP therapy. She was diagnosed to have severe obstructive sleep apnea-hypopnea syndrome. The patient wears with a Respironics Wisp nasal mask. She uses her ResMed AirSense 11 every night and all night. The compliance data show usage in 364 out of the past 365 nights, averaging 7 hours a night. The > 4 hour compliance rate for the past 365 days is 98%. The residual AHI is 3.2. Average air leak is 0.3 L/minute. She wears a nasal mask. The pressure on the machine is set at 5 - 9 cmH2O. [employer] is her durable medical supplier. She has another autoCPAP that is the replacement to her recalled Respironics machine. Sleep Study - Results Prior sleep studies: Yes Year and Where: 2016 - [facility] Sleep CPAP Compliance Data - Data Reviewed with Patient Average duration of nightly device use: 6HRS 56MINS Compliance rate %: 100 (5-9) Current pressure setting (cmH2O): 5-9 Average residual AHI: 3.8 Subjective Initial [place] Sleepiness Scale score: 10 (in 2017) Current [place] Sleepiness Scale score: 11 (04/05/23) Allergies and Home Medications Drug allergies reviewed: Yes Home medication list reviewed: Yes Allergy and home medication list: Allergies No Known Drug Allergies Allergy (Verified 04/02/23 10:38) Review of Systems Review of systems same as previous: Yes Physical Exam Vital signs obtained and entered by: AGUSTIN Gayle MA Blood Pressure: 126/72 (LEFT ARM) Cuff size: regular Heart Rate: 88 O2 Saturation: 96 Height: 5 ft 9 in Weight: 305 lb Body Mass Index: 45.0 BMI Classification: Morbidly Obese Impression and Plan IMPRESSION: 1. Obstructive Sleep Apnea-Hypopnea Syndrome, severe (58.5), with the patient continuing to do well on nasal CPAP therapy. She has excellent compliance and significant clinical improvement. The current pressure appears effective and comfortable. Her mask fits well. Overall, she is very satisfied with treatment and plans to continue with it long-term. PLAN: 1. Continue with autoCPAP set at 5 9 cmH2O. 2. Try to lose weight. 3. Return for a follow up in a year or earlier if there is any problem. Follow up with Sleep Care in: 1 year Follow up recommended for: Weight management Visit Type: In Office Time Spent with Patient (minutes): 15 Provider Statement: I spent 100% of the Face to Face Visit with the patient with greater than 50% spent counseling the patient and coordination of care.
[2023-04-05 10:21] VITALS: BP 126/72; O2SAT 96
== END 2023-04-05 09:45 | disposition home or self-care (01) ==
LOC: SC 09:44
PROVIDERS: ATTEND Internal Medicine Pulmonary Disease
DX: G47.33 Obstructive sleep apnea (adult) (pediatric) (principal); E66.01 Morbid (severe) obesity due to excess calories; Z68.42 Body mass index [BMI] 45.0-49.9, adult
CPT/HCPCS: 99212; G0463

== ENCOUNTER 2023-05-06 07:41 | Outpatient (CLI) | payer MEDICARE, MEDICAID ==
--- NOTE | 2023-05-06 10:40 | Mammography Report ---
BILATERAL DIGITAL DIAGNOSTIC MAMMOGRAM 3D/2D: 05/06/2023 CLINICAL: Occasional right breast pain. Swollen left lymph nodes in axilla. Comparison is made to exams dated: 08/24/2017 mammogram, 04/13/2016 mammogram, 09/27/2015 mammogram, and 10/04/2013 mammogram - [facility]. There are scattered areas of fibroglandular density in both breasts (category b / 25%-50% glandular t issue). No significant masses, calcifications, or other findings are seen in either breast. Of note, patient 's symptoms resolved at time of imaging, therefore no BB marker was placed or additional views acquir ed. IMPRESSION: NEGATIVE There is no mammographic evidence of malignancy. A 1 year screening mammogram is recommended. Findings and recommendations were conveyed to the patient during today's evaluation. Based on the Tyrer Cuzick model (a risk assessment model) the patients lifetime risk is 5.9% and her 10 year risk is 4.0%. According to the ACR, ACS, and NCCN guidelines, an annual breast MRI exam conrad g with mammogram is recommended if the patients lifetime risk is 20% or greater. This exam was interpreted at Station ID: [id number]. NOTE: For mammograms, a report in lay terms will be sent to the patient. Approximately 15% of breast malignancies will not be visualized mammographically. In the management of a palpable breast mass, a negative mammogram must not discourage biopsy of a clinically suspicious lesion. Electronically Signed By: Magalys Edmonds M.D., PH.D eb/:05/06/2023 08:50:29 ACR BI-RADS Category 1: Negative 3341F PARENCHYMAL PATTERN: (A) - The breast(s) demonstrate(s) scattered fibroglandular densities. BI-RADS CATEGORY: (1) - 1 Mammogram [id number] 1 year screening LATERALITY: (B)
== END 2023-05-06 07:42 | disposition home or self-care (01) ==
LOC: DI 07:41
PROVIDERS: ATTEND Physician Assistant
DX: N64.4 Mastodynia (principal); R92.323 Mammographic fibroglandular density, bilateral breasts; L02.91 Cutaneous abscess, unspecified; N63.20 Unspecified lump in the left breast, unspecified quadrant

== ENCOUNTER 2023-12-31 09:15 | Outpatient (CLI) | payer MEDICARE, MEDICAID ==
[2023-12-31 09:42] LABS: BASOPHILS # (AUTO) 0.1 10^3/uL (0.0-0.1); BASOPHILS % (AUTO) 0.7 %; EOSINOPHILS # (AUTO) 0.2 10^3/uL (0.0-0.7); EOSINOPHILS % (AUTO) 2.5 %; HCT - HEMATOCRIT 48.2 % (37.0-47.0); HGB - HEMOGLOBIN 14.7 g/dL (12.0-16.0); LYMPHOCYTES # (AUTO) 2.4 10^3/uL (1.5-3.5); LYMPHOCYTES % (AUTO) 31.9 %; MEAN CORPUSCULAR HEMOGLOBIN 27.6 pg (27.0-31.0); MEAN CORPUSCULAR HGB CONC 30.5 g/dL (32.0-36.0); MEAN CORPUSCULAR VOLUME 90.4 fL (81.0-99.0); MEAN PLATELET VOLUME 9.7 fL (7.9-10.8); MONOCYTES # (AUTO) 0.6 10^3/uL (0.0-1.0); NEUTROPHILS # (AUTO) 4.3 10^3/uL (1.5-6.6); NEUTROPHILS % (AUTO) 56.8 %; PLT - PLATELET COUNT 188 10^3/uL (130-450); RED BLOOD COUNT 5.33 10^6/uL (4.20-5.40); RED CELL DISTRIBUTION WIDTH 14.5 % (12.0-15.0); WHITE BLOOD COUNT 7.5 x10^3/uL (4.8-10.8)
[2023-12-31 09:51] LABS: ALBUMIN 4.3 g/dL (3.2-5.5); ALBUMIN/GLOBULIN RATIO 1.5 (1.0-2.2); ALKALINE PHOSPHATASE 61 IU/L (42-121); ALT ALANINE AMINOTRANSFERASE 13 IU/L (10-60); AST ASPARTATE AMINOTRANSFERASE 13 IU/L (10-42); BUN - BLOOD UREA NITROGEN 18 mg/dL (6-20); CALCIUM 9.6 mg/dL (8.5-10.3); CARBON DIOXIDE - CO2 31 mmol/L (21-32); CHLORIDE 104 mmol/L (101-111); CHOLESTEROL 193 mg/dL; CREATININE 1.1 mg/dL (0.6-1.3); GFR - MDRD 49 (>89); GLUCOSE 123 mg/dL (74-104); HDL CHOLESTEROL 48 mg/dL; LDL CHOLESTEROL,CALCULATED 116 mg/dL; LDL/HDL RATIO 2.4 (<4.4); POTASSIUM 4.5 mmol/L (3.5-4.5); SODIUM 141 mmol/L (135-145); TOTAL PROTEIN 7.1 g/dL (6.4-8.9); TRIGLYCERIDES 145 mg/dL; VLDL CHOLESTEROL 29 mg/dL
[2023-12-31 10:11] LABS: THYROID STIMULATING HORMONE 4.91 uIU/mL (0.34-5.60)
[2023-12-31 10:37] LABS: ESTIMATED AVERAGE GLUCOSE 120 mg/dL (70-100); HEMOGLOBIN A1c% 5.8 % (4.27-6.07)
== END 2023-12-31 09:16 | disposition home or self-care (01) ==
LOC: LAB 09:15
PROVIDERS: ATTEND Physician Assistant
DX: E89.0 Postprocedural hypothyroidism (principal); E78.5 Hyperlipidemia, unspecified; R73.03 Prediabetes
CPT/HCPCS: 36415; 80053; 80061; 83036; 83721; 84443; 85025

== ENCOUNTER 2024-01-07 09:39 | Outpatient (CLI) | payer MEDICARE, MEDICAID ==
[2024-01-07] MEDS ORDERED: DIATRIZOATE MEGLU/DIATRIZO SOD 30 ML BOTTLE PO ONE (09:46)
[2024-01-07] MEDS ORDERED: iohexoL-300 100 ML VIAL ONE ×2 (09:46→11:02)
[2024-01-07] MEDS: DIATRIZOATE MEGLU/DIATRIZO SOD 30 ML BOTTLE PO ONE (11:49)
[2024-01-07] MEDS: iohexoL-300 100 ML VIAL IVP ONE (11:49)
--- NOTE | 2024-01-07 15:24 | CT Report ---
PROCEDURE: Abdomen/Pelvis W INDICATIONS: ABD PAIN CONTRAST: 100ml omni 300 TECHNIQUE: After the administration of intravenous contrast, a CT scan of the abdomen and pelvis was performed. Images were recorded and evaluated at appropriate window settings. Reformats: coronal and sagittal. F or radiation dose reduction, the following was used: automated exposure control, adjustment of mA and /or kV according to patient size. COMPARISON: None. FINDINGS: Image quality: Diagnostic. Lower chest: Dependent atelectasis in posterior and lateral periphery of the lateral lung bases are s een. No pleural effusion or pneumothorax. Heart size is normal, no pericardial effusion. Liver: No solid mass. Moderate hepatic steatosis is seen. Gallbladder: No radiopaque stones or wall thickening. Biliary tree: No intrahepatic or extrahepatic dilation, accounting for age. Spleen: No splenomegaly. Pancreas: No pancreatic ductal dilation. Adrenals: No adrenal nodule. Kidneys and ureters: No hydronephrosis. Simple appearing right renal cortical cyst in mid pole right kidney is seen measures 4.3 x 4.1 cm in size. No renal cystic lesion which requires follow up. No katiana id mass. Stomach, bowel and peritoneum: No gastric or small bowel dilation. No abnormal wall thickening. No pa thologic free fluid. Mild sigmoid diverticulosis is seen. No CT evidence of acute diverticulitis. No peritoneal free air. Mild fecal stasis in the colon is seen. Lymph nodes: No central or retroperitoneal adenopathy. Vessels: No infrarenal aortic aneurysm. Patent portal vein. PELVIS Reproductive organs: Hysterectomy. Bladder: No abnormal wall thickening, accounting for underdistention. Pelvic lymph nodes: No pelvic adenopathy by size criteria. Bones: No aggressive osseous abnormality. Degenerative disc disease throughout lower thoracic and lum bar spine is seen. Other: Small bilateral inguinal hernia is seen containing fat only more prominent on the left side. IMPRESSION: 1. Colonic diverticulosis without CT evidence of acute diverticulitis. Mild constipation. No bowel ob struction. No free fluid or free air. 2. Moderate hepatic steatosis, no discrete hepatic lesion. 3. Simple appearing right renal cysts as above. No solid appearing renal lesion. No hydronephrosis. 4. Bibasilar dependent atelectasis. 5. Prior hysterectomy. 6. Degenerative disc disease throughout lower thoracic and lumbar spine. Reviewed by: Louie López MD on 01/07/2024 3:23 PM PDT Approved by: Louie López MD on 01/07/2024 3:23 PM PDT Station ID: [id number]
== END 2024-01-07 09:40 | disposition home or self-care (01) ==
LOC: DI 09:39
PROVIDERS: ATTEND Physician Assistant
DX: R19.4 Change in bowel habit (principal); R10.32 Left lower quadrant pain; K57.30 Diverticulosis of large intestine without perforation or abscess without bleeding; K76.0 Fatty (change of) liver, not elsewhere classified; N28.1 Cyst of kidney, acquired; J98.11 Atelectasis; M51.36 Other intervertebral disc degeneration, lumbar region; M51.34 Other intervertebral disc degeneration, thoracic region; Z90.710 Acquired absence of both cervix and uterus
CPT/HCPCS: 74177; Q9963; Q9967